=== PATIENT | female | born 1965 | race Caucasian/White ===

== ENCOUNTER 2017-08-09 08:45 | Inpatient (IN) | payer SELFPAY ==
[~2017-08-09] VITALS: Ht 167.6 cm; Wt 133.2 kg
[2017-08-09] VITALS (8 sets, daily range): BP systolic 125–171; BP diastolic 42–92
[~2017-08-09 08:45] MED LIST: ADVAIR DISK1 IN; ALL DAY10 MG PO; ALLEGRA-D24 HOUR OR; AMOXICILLIN/CL875 MG PO; ANAPROX DS550 MG OR; ANTIVERT OR; BUSPIRONE10 MG PO; BUSPIRONE5 MG PO; CELEBREX100 MG PO; CELEBREX200 MG PO; CHOLESTEROL MED; CLINDAMYCIN300 M1 PO; CLONAZEPAM0.5 M1 PO; CYMBALTA30 MG PO; CYMBALTA60 MG PO; ENALAPRIL2.5 MG PO; ENALAPRIL5 MG PO; FLEXERIL OR; FOLIC ACID1 MG PO; GABAPENTIN100 MG PO; GABAPENTIN300 MG PO; GABAPENTIN600 MG PO; GENTAMICIN15 ML/BTL OP; GLYBURIDE5 M1 PO; HYDROCO/APAP1 T10 PO; LISINOPRIL10 MG OR; LYRICA150 MG PO; METFORMIN500 MG PO; METHOTREXATE2.5 MG PO; MIRACLEMM PO; MONTELUKAST SOD10 MG PO; NAPROSYN250 MG PO; NAPROSYN500 MG PO; NORCO1 TA1 PO; PROVENTIL INH17 GM IN; RHEUMATREX2.5 MG PO; TYLENOL500 MG OR; ULTRAM50 MG OR; VALIUM5 MG PO; ZOLPIDEM10 M1 PO; [UNRECOGNIZED DRUG - REMARK]
--- NOTE | 2017-08-09 08:55 | NUR ---
PT TO ROOM 10 VIA EMS STRETCHER. 4 MG OF ZOFRAN GIVEN IVP PER EMS.
[2017-08-09] MEDS ORDERED: CLONAZEPAM1 MG PO (09:02)
[2017-08-09] MEDS ORDERED: ENALAPRIL2.5 MG PO (09:02)
[2017-08-09] MEDS ORDERED: HUMIRA PE1 IM (09:06)
--- NOTE | 2017-08-09 09:50 | NUR ---
NO NEW COMPLAINTS VOICED, AWAITING CALL TO CT
[2017-08-09 10:09] LABS: HEMATOCRIT 32.4 % (37.0-47.0); HEMOGLOBIN 10.4 g/dl (12.0-16.0); MEAN CELL VOLUME 92.3 fL CALC (80.0-100.0); MEAN CORPUSCULAR HGB 29.6 pG CALC (26.0-32.0); MEAN CORPUSCULAR HGB CONC 32.1 g/L CALC (32.0-36.0); NEUT# 6.33 thou/uL (2.00-7.15); RED BLOOD COUNT 3.51 mill/uL (4.20-5.60); RED CELL DISTRI WIDTH 13.5 % (11.5-15.5)
[2017-08-09 10:39] LABS: URINE BILIRUBIN - DIPSTICK NEGATIVE (NEGATIVE); URINE BLOOD DIPSTICK LARGE (NEGATIVE); URINE CLARITY CLOUDY; URINE COLOR YELLOW; URINE GLUCOSE - DIPSTICK 250 mg/dL (NEGATIVE); URINE KETONE NEGATIVE (NEGATIVE); URINE LEUK ESTERASE MODERATE (NEGATIVE); URINE NITRITE - DIPSTICK NEGATIVE (Negative); URINE PH 5.5 (4.5-8.0); URINE PROTEIN - DIPSTICK 30 mg/dL (NEG-TRACE); URINE UROBILINOGEN - DIPSTICK 0.2 E.U./dL (0.2)
[2017-08-09 10:41] LABS: URINE RBC >100 RBC/hpf (0-5)
[2017-08-09 10:42] LABS: URINE BACTERIA FEW hpf
[2017-08-09 10:43] LABS: ALBUMIN 4.1 g/dL (3.2-5.0); BILIRUBIN, TOTAL 0.8 mg/dL (0.0-1.4); CREATININE 1.8 mg/dL (0.5-1.0); TOTAL PROTEIN 7.1 g/dL (6.3-8.2)
[2017-08-09 10:44] LABS: POTASSIUM 5.6 mmol/l (3.5-5.1)
--- NOTE | 2017-08-09 10:50 | NUR ---
PT PAIN IMPROVED, AT BEDSIDE. PT RESTING QUIETLY
--- NOTE | 2017-08-09 11:50 | NUR ---
PAIN IMPROVED WITH RECENT MEDICATION, WILL RECHECK INDICATED
--- NOTE | 2017-08-09 12:45 | NUR ---
ADMISSION IN PROGRESS, PT CALM AND QUIET, PO FLUIDS PROVIDED AFTER OK BY ER
--- NOTE | 2017-08-09 12:50 | NUR ---
ATTEMPTED REPORT TO FLOOR, WILL AWAIT CALLBACK INSTRUCTED
--- NOTE | 2017-08-09 13:10 | NUR ---
SBAR PRINTED TO [id number] AT THIS TIME.
--- NOTE | 2017-08-09 13:42 | NUR ---
Admission Note Report Given to: QASIM BANUELOS Transported by: X Wheelchair Stretcher Transported with: X Nurse Transporter Patent IV [id number] Rn New Graduate
--- NOTE | 2017-08-09 13:42 | NUR ---
REPORT GIVEN TO QASIM BANUELOS
--- NOTE | 2017-08-09 15:00 | NUR ---
REPORT RECEIVED FROM SHAWN IN ED, PT ARRIVED ON UNIT @ 1450 VIA STRETCHER, TRANSFERRED TO BED, ALERT AND ORIENTED X 4, ORIETNED TO ROOM AND CALL ARORA. C/O SHARP PAIN TO LEFT FLANK @ 9/10 AND ALSO NAUSEA. NO ANTIEMETIC ORDERED, FORMING MACHINE UPKEEP MECHANIC HELPER CONTACTED AND WROTE ORDER, ALL CONCERNS ADDRESSED, WILL CONTINUE TO MONITOR.
--- NOTE | 2017-08-09 19:30 | NUR ---
REPORT RECEIVED FROM VIN TRIPP;PT APPEARS TO BE SLEEPING IN SEMI FOWLERS POSITION;NO S/S OF DISTRESS NOTED;RESPIRATIONS APPEAR EVEN AND UNLABORED ON RA;IV FLUIDS INFUSING WELL TO EMS #20 IN THE LAC,SITE APPEARS HEALTHY;PT IS NOTED TO BE UNDER NPO DIET STATUS;WILL CONTINUE TO MONITOR
--- NOTE | 2017-08-09 20:00 | NUR ---
RECIEVED CALL FOR LUCIEN,CAR MECHANIC;PT WILL BE GOING TO OR IN LESS THAN 1 HOUR;PT TO BE PREPARED FOR OR AT THIS TIME;WILL CONTINUE TO MONITOR
--- NOTE | 2017-08-09 20:30 | NUR ---
PT AMBULATED TO RESTROOM WITH STEADY GAIT AND VOIDED 100CC OF CLEAR/YELLOW URINE;PT VOICES MINIMAL PAIN TO HER LEFT FLANK AREA;ELIAS GARCIA AT BEDSIDE TO DISCUSS PROCEDURE AND TRANSPORT TO OR AT THIS TIME
--- NOTE | 2017-08-09 22:55 | NUR ---
PT ARRIVED BACK TO FLOOR VIA STRETCHER IN STABLE CONDITION ACCOMPANIED BY OR STAFF;PT ALERT AND ORIENTED,SLIGHTLY DROWSY;AMBULATED TO BEDSIDE WITH STEADY GAIT;VS OBTAINED;PT DENIES ANY PAIN AT THIS TIME AND IS EDUCATED ON PAIN SCALE AND REPORTING;ASSESSMENT COMPLETED;RESPIRATIONS EVEN AND UNLABORED ON RA,CLEAR LUNG SOUNDS;I.S. AT BEDSIDE AND PT EDUCATED ON USE,10X PER HOUR WHILE AWAKE;ABDOMEN DISTENDED,SOFT ON PALPATION;HYPOACTIVE BOWEL SOUNDS;GENERALIZED DRYNESS NOTED TO BLE;STRONG PEDAL PULSES;EMS #20G TO RAC INFUSING NS @ 100ML/HR,SITE APPEARS HEALTHY AND FREE FROM EDEMA;SKIN INTACT;VICKY BASSAM PROVIDED PER PT REQUEST;SAFETY PRECAUTIONS REINFORCED WITH CALL LIGHT IN REACH;WILL CONTINUE TO MONITOR
[2017-08-10] VITALS (8 sets, daily range): BP systolic 123–156; BP diastolic 49–62
--- NOTE | 2017-08-10 | NUR ---
PT AMBULATED WITH A STEADY GAIT TO RESTROOM AND VOIDED 300CC OF YELLOW/BLOODY TINGED URINE;PT DENIES ANY PAIN;RESPIRATIONS REMAIN EVEN AND UNLABORED;IV SITE PATENT;PT ENCOURAGED TO CALL FOR ASSISTANCE IF NEEDED;CALL LIGHT IN REACH;WILL CONTINUE TO MONITOR
--- NOTE | 2017-08-10 03:20 | NUR ---
PT USED CALL LIGHT TO CALL FOR ASSISTANCE TO THE RESTROOM;PT AMBULATED WITH A STEADY GAIT,SHE IS NOTICEABLY DROWSY THIS MORNING;RESPIRATIONS EVEN AND UNLABORED ON RA;SCD'S IN PLACE;PT RE-POSITIONED BACK INTO BED WITH EASE;DENIES ANY PAIN CURRENTLY AND IS RE-ENCOURAGED TO REPORT PAIN;IV FLUIDS INFUSING WELL TO RAC,SITE APPEARS HEALTHY;CALL LIGHT IN REACH;WILL CONTINUE TO MONITOR
--- NOTE | 2017-08-10 07:40 | NUR ---
ASSESSMENT IS COMPLETED: IV SITE IS FREE FROM REDNESS OR EDEMA. IN TO VISIT WITH PT NEW ORDERS OBTAINED. BREATH SOUNDS ARE CLEAR BILATERALLY. PT IS RELAXING IN BED , HR IS REG, PULSES ARE STRONG X4. CONTINUE TO OSBERVE AND MONITOR.
[2017-08-10 07:44] LABS: HEMOGLOBIN 9.2 g/dl (12.0-16.0); IMMATURE GRANULOCYTES 0.7 % (0.0-1.0); MEAN CELL VOLUME 95.1 fL CALC (80.0-100.0); MEAN CORPUSCULAR HGB 30.2 pG CALC (26.0-32.0); MEAN CORPUSCULAR HGB CONC 31.7 g/L CALC (32.0-36.0); NEUT# 5.46 thou/uL (2.00-7.15); RED BLOOD COUNT 3.05 mill/uL (4.20-5.60)
[2017-08-10 08:11] LABS: CREATININE 1.9 mg/dL (0.5-1.0); POTASSIUM 5.1 mmol/l (3.5-5.1)
[2017-08-10 08:57] LABS: CHOLESTEROL HDL RATIO 3.1 (<4.4 (CALC)); MAGNESIUM 1.5 mg/dL (1.6-2.3)
--- NOTE | 2017-08-10 12:30 | NUR ---
PT IS RELAXING IN BED WITH NO DISTRESS NOTED. IV SITE IS FREE FROM REDNESS OR EDEMA.
--- NOTE | 2017-08-10 16:15 | NUR ---
PT HASBEEN RELAXING IN BED WITH NO DISTRESS NTOED. IV SITE IS FREE FROM REDNESS OR EDEMA.
--- NOTE | 2017-08-10 19:05 | NUR ---
REPORT RECEIVED FROM SHAHIDA LOPEZ;PT APPEARS TO BE SLEEPING IN SUPINE POSITION;IV SITE PATENT INFUSING 1/2 NS @ 100;BED IN THE LOWEST POSITION WITH CALL LIGHT IN REACH;WILL CONTINUE TO MONITOR
--- NOTE | 2017-08-10 21:35 | NUR ---
PT RESTING IN SUPINE POSITION COMPLAINING OF LEFT LOWER QUAD PAIN RATING 9/10 ON THE PAIN SCALE AND REQUESTING PAIN MEDICATION;PT MEDICATED WITH PRN DILAUDID 2MG IVP,WILL MONITOR FOR EFFECTIVENESS;A&O X3;ASSESSMENT COMPLETED;RESPIRATIONS EVEN AND UNLABORED ON RA,CLEAR LUNG SOUNDS;ABDOMEN DISTENDED,SOFT ON PALPATION,HYPOACTIVE BOWEL SOUNDS;TENDERNESS TO UPPER AND LOWER LEFT QUADS;STRONG PEDAL PULSES;EMS #20G TO RAC INFUSING 1/2 NS @ 100ML/HR,SITE APPEARS HEALTHY AND FREE FROM EDEMA;PT EDUCATED ON EMS SITE EXPIRATION DATE AND AGREES FOR A SITE CHANGE IN THE MORNING;PT TEARY,REPORTING THAT SHE IS HAVING A DIFFICULT TIME RIGHT NOW.HER MOTHER 2 YEARS AGO FROM THE SAME SYMPTOMS AND PROCEDURE;PT REASSURED AND ENCOURAGED TO EXPRESS HER THOUGHTS AND FEELINGS;PT VOICES NO OTHER NEEDS AT THIS TIME;SAFETY PRECAUTIONS REINFORCED;CALL LIGHT IN REACH;WILL CONTINUE TO MONITOR
[2017-08-11 00:38] VITALS: BP 96/61
--- NOTE | 2017-08-11 01:05 | NUR ---
PT APPEARS TO BE SLEEPING IN SUPINE POSITION;RESPIRATIONS EVEN AND UNLABORED ON RA;NO S/S OF DISTRESS NOTED;IV FLUIDS INFUSING WELL TO RAC;CALL LIGHT IN REACH;WILL CONTINUE TO MONITOR
--- NOTE | 2017-08-11 04:30 | NUR ---
PT APPEARS TO BE SLEEPING IN SUPINE POSITION;NO S/S OF DISTRESS NOTED;RESPIRATIONS EVEN AND UNLABORED ON RA;IV SITE PATENT INFUSING 1/2 NS WELL;BED IN THE LOWEST POSITION WITH CALL LIGHT IN REACH;WILL CONTINUE TO MONITOR
--- NOTE | 2017-08-11 05:45 | NUR ---
PT AMBULATED 2 HALLWAYS WITH A STEADY GAIT;EMS #20G TO RAC REMOVED WITH CATHETER INTACT DUE TO EXPIRATION DATE;NEW #22G TO LAC STARTED,PT TOLERATED WELL;WILL CONTINUE TO MONITOR
[2017-08-11 06:07] LABS: HEMATOCRIT 28.7 % (37.0-47.0); MEAN CELL VOLUME 96.6 fL CALC (80.0-100.0); MEAN CORPUSCULAR HGB 30.3 pG CALC (26.0-32.0); MEAN CORPUSCULAR HGB CONC 31.4 g/L CALC (32.0-36.0); RED BLOOD COUNT 2.97 mill/uL (4.20-5.60); RED CELL DISTRI WIDTH 14.2 % (11.5-15.5)
--- NOTE | 2017-08-11 06:10 | NUR ---
PT COMPLAINS OF LEFT LOWER QUAD PAIN RATING 9/10 ON THE PAIN SCALE AND REQUEST PAIN MEDICATION;PT MEDICATED WITH DILAUDID 2MG IVP;VICKY BASSAM PROVIDED PER REQUEST;WILL MONITOR FOR EFFECTIVENESS
[2017-08-11 06:31] LABS: ALBUMIN 3.5 g/dL (3.2-5.0); CREATININE 1.5 mg/dL (0.5-1.0); MAGNESIUM 1.8 mg/dL (1.6-2.3)
[2017-08-11 06:33] LABS: POTASSIUM 5.5 mmol/l (3.5-5.1)
[2017-08-11 06:39] VITALS: BP 148/77
[2017-08-11 07:40] VITALS: BP 136/57
--- NOTE | 2017-08-11 07:40 | NUR ---
ASSESSMENT IS COMPLETED: IV SITE IS FREE FROM REDNESS OR EDEMA. PT WANTING TO SLEEP THIS AM. HR IS REG,PULSES ARE STRONG X4,ABD IS SOFT WITH ACTIV EBS,. CONTINUE TO OSBERVE AND MONITOR.
--- NOTE | 2017-08-11 11:42 | NUR ---
PT'S IV SITE IS PINK AND PUFFY. STOPPED FOR NOW WILL RESTART. CONTINUE TO OBSERVE AND MONITOR.
--- NOTE | 2017-08-11 12:30 | NUR ---
ATTEMPTED TO START IV IN RARM, UNSUCCESSFUL X2, HAD LINDY BANUELOS COME AND STARTED IN OUTER RAC WITH #22. FLUSHING AND WORKING WELL PT TOLERATD WELL.
--- NOTE | 2017-08-11 15:50 | NUR ---
PT IS VISITING WITH FAMILY,. NO DISTRESS NOTED. IV SITE IS FREE FROM REDNESS OR EDEAM.
[2017-08-11 15:59] VITALS: BP 154/70
--- NOTE | 2017-08-11 19:30 | NUR ---
REPORT RECIEVED; PT WOKE TO SPEECH. PT DENIES ANY PAIN OR DISCOMFORT. SAFETY PRECAUTIONS REINFORCED. FREQUENT ROUNDS MADE. PT ENCOURAGED TO CALL FOR ASSISTANCE. CALL LIGHT WITHIN REACH.
[2017-08-11 19:50] VITALS: BP 146/62
--- NOTE | 2017-08-11 21:20 | NUR ---
PT WOKE FOR ASSESSMENT; RESP EVEN AND UNLABORED. LUNGS CLEAR BILAT. ABD DISTENDED; SOFT. HYPOACTIVE BOWEL SOUNDS NOTED. TRACE ANKLE EDEMA NOTED BILAT. PEDAL PULSES PALPATED BILAT. IV RFA PATENT; FLUSHED WITHOUT DIFFICULT. PT ENCOURAGED TO CALL FOR ASSISTANCE. SAFETY PRECAUTIONS REINFORCED. CALL LIGHT WITHIN REACH.
--- NOTE | 2017-08-12 00:10 | NUR ---
RESP EVEN AND UNLABORED; NO DISTRESS NOTED. CALL LIGHT WITHIN REACH.
--- NOTE | 2017-08-12 02:40 | NUR ---
PT UP TO BATHROOM; PT DENIES ANY PAIN OR DISCOMFORT. PT ASSISTED BACK TO BED. SAFETY PRECAUTIONS REINFORCED. PT ENCOURAGED TO CALL FOR ASSISTANCE. CALL LIGHT WITHIN REACH.
--- NOTE | 2017-08-12 04:05 | NUR ---
RESP EVEN AND UNLABORED; NO DISTRESS NOTED. ASSESSMENT UNCHANGED. CALL LIGHT WITHIN REACH.
[2017-08-12 04:57] VITALS: BP 145/71
[2017-08-12 05:43] LABS: ALBUMIN 3.6 g/dL (3.2-5.0); CREATININE 1.3 mg/dL (0.5-1.0); POTASSIUM 4.6 mmol/l (3.5-5.1)
[2017-08-12 05:49] LABS: HEMATOCRIT 28.8 % (37.0-47.0); HEMOGLOBIN 9.1 g/dl (12.0-16.0); IMMATURE GRANULOCYTES 1.9 % (0.0-1.0); MEAN CORPUSCULAR HGB CONC 31.6 g/L CALC (32.0-36.0); NEUT# 3.62 thou/uL (2.00-7.15); RED BLOOD COUNT 3.03 mill/uL (4.20-5.60); RED CELL DISTRI WIDTH 13.9 % (11.5-15.5)
--- NOTE | 2017-08-12 07:00 | NUR ---
BEDSIDE REPORT RECEIVED BY KAVEH. PT IS RESTING IN HER RIGHT SIDE AND DENIES NEEDS. CALL LIGHT IN REACH.
[2017-08-12 08:00] VITALS: BP 124/64
--- NOTE | 2017-08-12 08:00 | NUR ---
ASSESSMENT DONE AND 02 AT 2L/MIN VIA NC. # 22 RFA THAT APPEARS HEALTHY. ANKLES BILATERAL EDEMA TRACE. OREINTED T0 CALL LIGHT AND SAFETY PRECAUTIONS REINFORCED.
--- NOTE | 2017-08-12 10:04 | NUR ---
MEIDCATED PT FOR PAIN SEE EMAR.
--- NOTE | 2017-08-12 12:00 | NUR ---
PT SITTING IN BED EATING HER LUNCH WITH NO S/S OF DISTRESS NOTED. CALL LIGHT IN REACH.
--- NOTE | 2017-08-12 15:20 | NUR ---
PT IS SITTING IN BED WITH NO S/S OF DISTRESS NOTED. IN ROOM.
--- NOTE | 2017-08-12 15:53 | NUR ---
Discharge instructions given. Educated PT on how to give insulin medication and where the site for the injections. Patient verbalizes understanding of same. Discharged in stable condition via Wheelchair to Home with spouse. All belongings sent with pt.
== END 2017-08-12 15:45 | disposition home or self-care (01) | DRG 690 ==
LOC: ED 08:45 → ED-I 12:15 → MS2 13:03 → ED 13:03 → MS2 08-12 15:45
PROVIDERS: Emergency Medicine; Internal Medicine Nephrology; Nurse Practitioner Family; ADMIT Internal Medicine; ATTEND Internal Medicine
PROC: 0T788DZ Dilation of Bilateral Ureters with Intraluminal Device, Via Natural or Artificial Opening Endoscopic (ICD-10-PCS; principal; 2017-08-09)
PROC: BT14ZZZ Fluoroscopy of Kidneys, Ureters and Bladder (ICD-10-PCS; 2017-08-09)
DX: N13.6 Pyonephrosis (principal); E11.22 Type 2 diabetes mellitus with diabetic chronic kidney disease; M32.9 Systemic lupus erythematosus, unspecified; N17.9 Acute kidney failure, unspecified; E83.42 Hypomagnesemia; N18.3 Chronic kidney disease, stage 3 (moderate); E11.65 Type 2 diabetes mellitus with hyperglycemia; Z68.42 Body mass index [BMI] 45.0-49.9, adult; E87.5 Hyperkalemia; J44.9 Chronic obstructive pulmonary disease, unspecified; G47.33 Obstructive sleep apnea (adult) (pediatric); I12.9 Hypertensive chronic kidney disease with stage 1 through stage 4 chronic kidney disease, or unspecified chronic kidney disease; F41.9 Anxiety disorder, unspecified; E66.9 Obesity, unspecified; D64.9 Anemia, unspecified; Z87.891 Personal history of nicotine dependence; Z79.84 Long term (current) use of oral hypoglycemic drugs; Z98.890 Other specified postprocedural states
CPT/HCPCS: Q9967

== ENCOUNTER 2017-10-06 08:33 | Day surgery (SDC) | payer SELFPAY ==
[~2017-10-06] VITALS: Ht 167.6 cm; Wt 122.5 kg
[~2017-10-06 08:33] MED LIST changes: +CLONAZEPAM1 MG PO; +HUMIRA PE1 IM; +HYDROCO/APAP1 TA9 PO; +NOVOLOG100 UNIT/M SC; +TAMSULOSIN HCL0.4 MG PO
[2017-10-06] MEDS ORDERED: KEFLEX250 MG PO (12:57)
[2017-10-06] MEDS ORDERED: DITROPAN5 MG/TA1 PO (12:57)
[2017-10-06] MEDS ORDERED: DOCUSATE CAL240 MG PO (12:57)
[2017-10-06 13:34] VITALS: BP 176/88
== END 2017-10-06 14:10 | disposition home or self-care (01) | DRG 661 ==
LOC: ORM 08:33
PROVIDERS: ATTEND Urology
PROC: 0TC18ZZ Extirpation of Matter from Left Kidney, Via Natural or Artificial Opening Endoscopic (ICD-10-PCS; principal; 2017-10-06)
PROC: 0TC68ZZ Extirpation of Matter from Right Ureter, Via Natural or Artificial Opening Endoscopic (ICD-10-PCS; 2017-10-06)
PROC: 0TC78ZZ Extirpation of Matter from Left Ureter, Via Natural or Artificial Opening Endoscopic (ICD-10-PCS; 2017-10-06)
PROC: 0TC08ZZ Extirpation of Matter from Right Kidney, Via Natural or Artificial Opening Endoscopic (ICD-10-PCS; 2017-10-06)
PROC: 0T788DZ Dilation of Bilateral Ureters with Intraluminal Device, Via Natural or Artificial Opening Endoscopic (ICD-10-PCS; 2017-10-06)
DX: N20.1 Calculus of ureter (principal); N18.9 Chronic kidney disease, unspecified; N26.1 Atrophy of kidney (terminal)
CPT/HCPCS: J2710; Q9967

== ENCOUNTER 2018-11-22 08:59 | Emergency (ER) | payer SELFPAY ==
[~2018-11-22] VITALS: Ht 167.6 cm; Wt 118.8 kg
[~2018-11-22 08:59] MED LIST changes: +DITROPAN5 MG/TA1 PO; +DOCUSATE CAL240 MG PO; +KEFLEX250 MG PO
[2018-11-22] MEDS ORDERED: FLEXERIL PO (09:39)
[2018-11-22] MEDS ORDERED: MOTRIN400 MG PO (09:40)
[2018-11-22] MEDS ORDERED: METHYLPRED4 MG PO (09:41)
[2018-11-22 10:01] LABS: HEMATOCRIT 33.1 % (37.0-47.0); IMMATURE GRANULOCYTES 0.7 % (0.0-5.0); MEAN CORPUSCULAR HGB 28.8 pG CALC (26.0-32.0); MEAN CORPUSCULAR HGB CONC 33.5 g/L CALC (32.0-36.0); NEUT# 5.73 thou/uL (2.00-7.15); RED BLOOD COUNT 3.86 mill/uL (4.20-5.60); RED CELL DISTRI WIDTH 14.5 % (11.5-15.5)
[2018-11-22 10:15] LABS: BUN 15 mg/dL (7-17); BUN/CREATININE RATIO 14 (12-20 (CALC)); CARBON DIOXIDE 19 mmol/l (22-30); CHLORIDE 103 mmol/l (95-108); CREATININE 1.1 mg/dL (0.5-1.0); GFR 52 ML/MIN (>=60 (CALC)); GFR FOR AFR.AMER. > 60 ML/MIN (>=60 (CALC)); POTASSIUM 3.4 mmol/l (3.5-5.1)
[2018-11-22 10:16] LABS: ANION GAP 18 (6-22 (CALC)); SODIUM 137 mmol/l (137-146)
[2018-11-22] MEDS ORDERED: K-TAB20 MEQ PO (10:20)
[2018-11-22 10:21] LABS: HEMOGLOBIN 11.1 g/dl (12.0-16.0); MEAN CELL VOLUME 85.8 fL CALC (80.0-100.0)
[2018-11-22] MEDS ORDERED: CYCLOBENZAPR5 MG PO (11:03)
[2018-11-22 11:46] VITALS: BP 150/64
== END 2018-11-22 11:37 | disposition home or self-care (01) | DRG 563 ==
LOC: ED 08:59
PROVIDERS: Family Medicine
DX: S39.012A Strain of muscle, fascia and tendon of lower back, initial encounter (principal); R22.43 Localized swelling, mass and lump, lower limb, bilateral; M54.5 Low back pain; R94.31 Abnormal electrocardiogram [ECG] [EKG]

== ENCOUNTER 2019-10-07 | Emergency (ER) | payer SELFPAY ==
[~2019-10-07] MED LIST changes: +CYCLOBENZAPR5 MG PO; +FLEXERIL PO; +K-TAB20 MEQ PO; +METHYLPRED4 MG PO; +MOTRIN400 MG PO
[2019-10-07 09:46] LABS: HEMATOCRIT 33.8 % (37.0-47.0); IMMATURE GRANULOCYTES 0.3 % (0.0-5.0); MEAN CELL VOLUME 87.1 fL CALC (80.0-100.0); MEAN CORPUSCULAR HGB 28.4 pG CALC (26.0-32.0); MEAN CORPUSCULAR HGB CONC 32.5 g/dL CAL (32.0-36.0); NEUT# 4.6 thou/uL (2.00-7.15); RED BLOOD COUNT 3.88 mill/uL (4.20-5.60); RED CELL DISTRI WIDTH 15.1 % (11.5-15.5)
[2019-10-07 10:09] LABS: ALBUMIN 4.1 g/dL (3.2-5.0); ALKALINE PHOSPHATASE 100 u/l (38-126); BILIRUBIN, TOTAL 0.9 mg/dL (0.0-1.4); BUN 18 mg/dL (7-17); BUN/CREATININE RATIO 16 (12-20 (CALC)); CHLORIDE 104 mmol/l (95-108); CREATININE 1.1 mg/dL (0.5-1.0); GFR 51 ML/MIN (>=60 (CALC)); GFR FOR AFR.AMER. > 60 ML/MIN (>=60 (CALC)); LIPASE 122 u/l (23-300); SGOT/AST 21 u/l (14-36); SODIUM 139 mmol/l (137-146); TOTAL PROTEIN 7.4 g/dL (6.3-8.2)
[2019-10-07] MEDS ORDERED: HUMIRA10 MG/0.1 IJ (10:20)
[2019-10-07 10:21] LABS: ANION GAP 11 (6-22 (CALC)); CARBON DIOXIDE 28 mmol/l (22-30); POTASSIUM 4.4 mmol/l (3.5-5.1)
[2019-10-07] MEDS ORDERED: LEVEMIR100 UNIT/M SC (10:21)
[2019-10-07] MEDS ORDERED: SUGAR BLOCKER PO (10:22)
[2019-10-07 10:55] LABS: URINE BILIRUBIN - DIPSTICK NEGATIVE (NEGATIVE); URINE BLOOD DIPSTICK NEGATIVE (NEGATIVE); URINE COLOR YELLOW; URINE GLUCOSE - DIPSTICK NEGATIVE (NEGATIVE); URINE KETONE NEGATIVE (NEGATIVE); URINE LEUK ESTERASE TRACE (NEGATIVE); URINE NITRITE - DIPSTICK NEGATIVE (Negative); URINE PROTEIN - DIPSTICK NEGATIVE (NEG-TRACE); URINE UROBILINOGEN - DIPSTICK 0.2 E.U./dL (0.2)
[2019-10-07] MEDS ORDERED: HYOSCYAMINE0.125 M3 PO (13:51)
[2019-10-07] MEDS ORDERED: ONDANSETRON4 MG PO (13:52)
[2019-10-07] MEDS ORDERED: BACTRIM DS1 TAB PO (13:52)
== END 2019-10-07 13:45 | disposition home or self-care (01) | DRG 392 ==
PROVIDERS: Family Medicine
DX: R10.13 Epigastric pain (principal); R10.30 Lower abdominal pain, unspecified; R30.0 Dysuria; K80.20 Calculus of gallbladder without cholecystitis without obstruction; I10 Essential (primary) hypertension
CPT/HCPCS: Q9967

== ENCOUNTER 2020-08-04 07:58 | Inpatient (IN) | payer SELFPAY ==
[~2020-08-04] VITALS: Ht 167.6 cm; Wt 113.4 kg
[~2020-08-04 07:58] MED LIST changes: +BACTRIM DS1 TAB PO; +HUMIRA10 MG/0.1 IJ; +HYOSCYAMINE0.125 M3 PO; +LEVEMIR100 UNIT/M SC; +ONDANSETRON4 MG PO; +SUGAR BLOCKER PO
[2020-08-04 09:21] LABS: HEMATOCRIT 33.6 % (37.0-47.0); HEMOGLOBIN 10.8 g/dl (12.0-16.0); IMMATURE GRANULOCYTES 0.4 % (0.0-5.0); MEAN CELL VOLUME 87.3 fL CALC (80.0-100.0); MEAN CORPUSCULAR HGB 28.1 pG CALC (26.0-32.0); MEAN CORPUSCULAR HGB CONC 32.1 g/dL CAL (32.0-36.0); NEUT# 4.42 thou/uL (2.00-7.15); RED BLOOD COUNT 3.85 mill/uL (4.20-5.60); RED CELL DISTRI WIDTH 14.7 % (11.5-15.5)
[2020-08-04 09:38] LABS: ALBUMIN 4.3 g/dL (3.2-5.0); ALKALINE PHOSPHATASE 109 u/l (38-126); ANION GAP 13 (6-22 (CALC)); BILIRUBIN, TOTAL 0.7 mg/dL (0.0-1.4); BUN 19 mg/dL (7-17); BUN/CREATININE RATIO 19 (12-20 (CALC)); CARBON DIOXIDE 25 mmol/l (22-30); CHLORIDE 104 mmol/l (95-108); GFR 57 ML/MIN (>=60 (CALC)); GFR FOR AFR.AMER. > 60 ML/MIN (>=60 (CALC)); LIPASE 98 u/l (23-300); SGOT/AST 25 u/l (14-36); SODIUM 138 mmol/l (137-146); TOTAL PROTEIN 7.8 g/dL (6.3-8.2)
[2020-08-04 09:50] LABS: MYOGLOBIN 78 ng/mL (0 - 62)
[2020-08-04 11:56] LABS: URINE BILIRUBIN - DIPSTICK NEGATIVE (NEGATIVE); URINE BLOOD DIPSTICK TRACE-LYSED (NEGATIVE); URINE COLOR YELLOW; URINE GLUCOSE - DIPSTICK NEGATIVE (NEGATIVE); URINE KETONE NEGATIVE (NEGATIVE); URINE LEUK ESTERASE NEGATIVE (NEGATIVE); URINE NITRITE - DIPSTICK NEGATIVE (Negative); URINE PROTEIN - DIPSTICK TRACE mg/dL (NEG-TRACE); URINE UROBILINOGEN - DIPSTICK 0.2 E.U./dL (0.2)
[2020-08-04 18:08] VITALS: BP 191/77
[2020-08-04 19:00] VITALS: BP 159/89
[2020-08-05] VITALS (24 sets, daily range): BP systolic 119–191; BP diastolic 52–101
[2020-08-05 06:14] LABS: HEMOGLOBIN 11.5 g/dl (12.0-16.0); IMMATURE GRANULOCYTES 0.7 % (0.0-5.0); MEAN CELL VOLUME 86.7 fL CALC (80.0-100.0); MEAN CORPUSCULAR HGB 27.7 pG CALC (26.0-32.0); MEAN CORPUSCULAR HGB CONC 31.9 g/dL CAL (32.0-36.0); NEUT# 7.11 thou/uL (2.00-7.15); RED BLOOD COUNT 4.15 mill/uL (4.20-5.60); RED CELL DISTRI WIDTH 14.6 % (11.5-15.5)
[2020-08-05 06:34] LABS: ALBUMIN 4.3 g/dL (3.2-5.0); ALKALINE PHOSPHATASE 120 u/l (38-126); ANION GAP 16 (6-22 (CALC)); BILIRUBIN, TOTAL 0.9 mg/dL (0.0-1.4); BUN 21 mg/dL (7-17); BUN/CREATININE RATIO 21 (12-20 (CALC)); CARBON DIOXIDE 20 mmol/l (22-30); CHLORIDE 104 mmol/l (95-108); GFR 57 ML/MIN (>=60 (CALC)); GFR FOR AFR.AMER. > 60 ML/MIN (>=60 (CALC)); HDL CHOLESTEROL 71 mg/dL (>=40); MAGNESIUM 1.8 mg/dL (1.6-2.3); POTASSIUM 4.7 mmol/l (3.5-5.1); SGOT/AST 26 u/l (14-36); SODIUM 135 mmol/l (137-146); TOTAL PROTEIN 7.7 g/dL (6.3-8.2); VLDL CHOLESTROL 92 mg/dl (2-49 (CALC))
[2020-08-05 06:56] LABS: TOTAL CHOLESTEROL 284 mg/dl (0-199)
[2020-08-05] MEDS ORDERED: HUMIR1 SC (08:35)
[2020-08-05] MEDS ORDERED: LEVEMIR100 UNIT/M SC (08:36)
[2020-08-05 11:43] LABS: MAGNESIUM 1.8 mg/dL (1.6-2.3)
[2020-08-06] VITALS (7 sets, daily range): BP systolic 119–145; BP diastolic 52–73
[2020-08-06 05:18] LABS: HEMATOCRIT 33.6 % (37.0-47.0); HEMOGLOBIN 10.9 g/dl (12.0-16.0); MEAN CELL VOLUME 86.6 fL CALC (80.0-100.0); MEAN CORPUSCULAR HGB 28.1 pG CALC (26.0-32.0); MEAN CORPUSCULAR HGB CONC 32.4 g/dL CAL (32.0-36.0); RED BLOOD COUNT 3.88 mill/uL (4.20-5.60); RED CELL DISTRI WIDTH 14.5 % (11.5-15.5)
[2020-08-06 05:54] LABS: CREATININE 1.2 mg/dL (0.5-1.0); MAGNESIUM 2.3 mg/dL (1.6-2.3); POTASSIUM 4.1 mmol/l (3.5-5.1)
[2020-08-06] MEDS ORDERED: FLECAINIDE100 MG PO (10:54)
[2020-08-06] MEDS ORDERED: PREDNISONE10 MG PO (11:01)
[2020-08-06] MEDS ORDERED: LISINOPRIL20 MG PO (11:01)
[2020-08-06] MEDS ORDERED: TRAMADOL HCL50 MG PO (11:01)
[2020-08-06] MEDS ORDERED: CYCLOBENZAPR5 MG PO (11:01)
[2020-08-06] MEDS ORDERED: ASPIRIN CHEWABL81 MG PO (11:01)
== END 2020-08-06 13:30 | disposition home or self-care (01) | DRG 310 ==
LOC: ED 07:58 → ED-I 09:50 → ED 10:07 → ED-I 10:08 → MS2 15:20 → ICU 20:54 → MS2 08-05 11:40 → ICU 08-05 20:54
PROVIDERS: Emergency Medicine; Nurse Practitioner; ADMIT Internal Medicine; ATTEND Internal Medicine
DX: I47.2 Ventricular tachycardia (principal); I11.0 Hypertensive heart disease with heart failure; I50.9 Heart failure, unspecified; E11.9 Type 2 diabetes mellitus without complications; I25.10 Atherosclerotic heart disease of native coronary artery without angina pectoris; M47.816 Spondylosis without myelopathy or radiculopathy, lumbar region; L93.0 Discoid lupus erythematosus; F41.9 Anxiety disorder, unspecified; N28.81 Hypertrophy of kidney; T46.5X6A Underdosing of other antihypertensive drugs, initial encounter; Z91.128 Patient's intentional underdosing of medication regimen for other reason; Z79.4 Long term (current) use of insulin; Z87.891 Personal history of nicotine dependence; Z20.822 Contact with and (suspected) exposure to COVID-19
CPT/HCPCS: J1650; J3475

== ENCOUNTER 2021-06-30 08:42 | Emergency (ER) | payer SELFPAY ==
[~2021-06-30] VITALS: Ht 167.6 cm; Wt 113.2 kg
[~2021-06-30 08:42] MED LIST changes: +ASPIRIN CHEWABL81 MG PO; +FLECAINIDE100 MG PO; +HUMIR1 SC; +LISINOPRIL20 MG PO; +PREDNISONE10 MG PO; +TRAMADOL HCL50 MG PO
[2021-06-30] MEDS ORDERED: NAPROXEN500 MG PO (12:09)
[2021-06-30 12:28] VITALS: BP 142/56
== END 2021-06-30 12:53 | disposition home or self-care (01) | DRG 563 ==
LOC: ED 08:42
DX: S96.912A Strain of unspecified muscle and tendon at ankle and foot level, left foot, initial encounter (principal); S96.911A Strain of unspecified muscle and tendon at ankle and foot level, right foot, initial encounter; I11.0 Hypertensive heart disease with heart failure; I50.9 Heart failure, unspecified; E11.9 Type 2 diabetes mellitus without complications; E66.01 Morbid (severe) obesity due to excess calories; X50.9XXA Other and unspecified overexertion or strenuous movements or postures, initial encounter; Z79.4 Long term (current) use of insulin; Z68.41 Body mass index [BMI] 40.0-44.9, adult

== ENCOUNTER 2022-02-22 09:12 | Emergency (ER) | payer SELFPAY ==
[~2022-02-22] VITALS: Ht 167.6 cm; Wt 113.6 kg
[~2022-02-22 09:12] MED LIST changes: +NAPROXEN500 MG PO
[2022-02-22 09:46] LABS: URINE BILIRUBIN - DIPSTICK NEGATIVE (NEGATIVE); URINE BLOOD DIPSTICK NEGATIVE (NEGATIVE); URINE COLOR YELLOW; URINE GLUCOSE - DIPSTICK NEGATIVE (NEGATIVE); URINE KETONE NEGATIVE (NEGATIVE); URINE PH 5.5 (4.5-8.0); URINE PROTEIN - DIPSTICK NEGATIVE (NEG-TRACE); URINE SPECIFIC GRAVITY 1.025; URINE UROBILINOGEN - DIPSTICK 0.2 E.U./dL (0.2)
[2022-02-22 09:47] LABS: URINE LEUK ESTERASE SMALL (NEGATIVE); URINE NITRITE - DIPSTICK NEGATIVE (Negative)
[2022-02-22 09:50] LABS: HEMATOCRIT 35.8 % (37.0-47.0); HEMOGLOBIN 11.9 g/dl (12.0-16.0); IMMATURE GRANULOCYTES 0.4 % (0.0-5.0); MEAN CELL VOLUME 90.6 fL CALC (80.0-100.0); MEAN CORPUSCULAR HGB 30.1 pG CALC (26.0-32.0); MEAN CORPUSCULAR HGB CONC 33.2 g/dL CAL (32.0-36.0); NEUT# 3.59 thou/uL (2.00-7.15); RED BLOOD COUNT 3.95 mill/uL (4.20-5.60); RED CELL DISTRI WIDTH 14.4 % (11.5-15.5)
[2022-02-22 09:51] LABS: URINE BACTERIA MODERATE hpf; URINE SQUAMOUS EPITHELIAL CELL FEW EPI/hpf (0-FEW)
[2022-02-22 09:59] VITALS: BP 152/81
[2022-02-22 10:56] LABS: ALBUMIN 4.4 g/dL (3.2-5.0); BILIRUBIN, TOTAL 0.7 mg/dL (0.0-1.4); CREATININE 1.3 mg/dL (0.5-1.0); POTASSIUM 4.6 mmol/l (3.5-5.1); TOTAL PROTEIN 8.2 g/dL (6.3-8.2)
[2022-02-22 11:16] VITALS: BP 157/91
[2022-02-22 11:18] VITALS: BP 171/82
[2022-02-22] MEDS ORDERED: OMEPRAZOLE DR40 MG PO (13:02)
[2022-02-22] MEDS ORDERED: CEPHALEXIN500 M1 PO (13:04)
[2022-02-22 13:07] VITALS: BP 171/82
== END 2022-02-22 13:15 | disposition home or self-care (01) | DRG 392 ==
LOC: ED 09:12
PROVIDERS: Family Medicine
DX: R10.13 Epigastric pain (principal); N39.0 Urinary tract infection, site not specified; I10 Essential (primary) hypertension; E66.9 Obesity, unspecified; E11.9 Type 2 diabetes mellitus without complications; Z79.4 Long term (current) use of insulin
CPT/HCPCS: Q9967

== ENCOUNTER 2022-03-20 09:58 | Emergency (ER) | payer SELFPAY ==
[~2022-03-20] VITALS: Ht 167.6 cm; Wt 113.0 kg
[2022-03-20] VITALS (10 sets, daily range): BP systolic 111–158; BP diastolic 35–94
[~2022-03-20 09:58] MED LIST changes: +CEPHALEXIN500 M1 PO; +OMEPRAZOLE DR40 MG PO
[2022-03-20 10:34] LABS: IMMATURE GRANULOCYTES 0.7 % (0.0-5.0); MEAN CELL VOLUME 90.6 fL CALC (80.0-100.0); MEAN CORPUSCULAR HGB 30.2 pG CALC (26.0-32.0); MEAN CORPUSCULAR HGB CONC 33.3 g/dL CAL (32.0-36.0); NEUT# 7.5 thou/uL (2.00-7.15); RED BLOOD COUNT 2.88 mill/uL (4.20-5.60); RED CELL DISTRI WIDTH 14.5 % (11.5-15.5)
[2022-03-20 10:35] LABS: HEMATOCRIT 26.1 % (37.0-47.0); HEMOGLOBIN 8.7 g/dl (12.0-16.0)
[2022-03-20 10:40] LABS: ALBUMIN 3.8 g/dL (3.2-5.0); BILIRUBIN, TOTAL 0.9 mg/dL (0.0-1.4); CHLORIDE 107 mmol/l (95-108); SGOT/AST 27 u/l (14-36); SODIUM 141 mmol/l (137-146); TOTAL PROTEIN 7.6 g/dL (6.3-8.2)
[2022-03-20 10:47] LABS: ALKALINE PHOSPHATASE 188 u/l (38-126); ANION GAP 27 (6-22 (CALC)); BUN 92 mg/dL (7-17); BUN/CREATININE RATIO 6 (12-20 (CALC)); CARBON DIOXIDE 12 mmol/l (22-30); GFR FOR AFR.AMER. 3 ML/MIN (>=60 (CALC)); GFR OTHER RACES 3 ML/MIN (>=60 (CALC)); POTASSIUM 5.3 mmol/l (3.5-5.1)
[2022-03-20 10:48] LABS: CREATININE > 14.0 mg/dL (0.5-1.0)
[2022-03-20 11:45] LABS: URINE BILIRUBIN - DIPSTICK NEGATIVE (NEGATIVE); URINE BLOOD DIPSTICK SMALL (NEGATIVE); URINE COLOR YELLOW; URINE GLUCOSE - DIPSTICK NEGATIVE (NEGATIVE); URINE KETONE NEGATIVE (NEGATIVE); URINE LEUK ESTERASE MODERATE (NEGATIVE); URINE NITRITE - DIPSTICK NEGATIVE (Negative); URINE PROTEIN - DIPSTICK TRACE mg/dL (NEG-TRACE); URINE UROBILINOGEN - DIPSTICK 0.2 E.U./dL (0.2)
[2022-03-20 11:46] LABS: URINE BACTERIA FEW hpf; URINE EPITHELIAL CELLS FEW EPI/hpf (0-FEW)
== END 2022-03-20 17:00 | disposition short-term general hospital (02) | DRG 694 ==
LOC: ED 09:58 → ED-I 12:32 → ED 17:00
PROVIDERS: Family Medicine
DX: N20.0 Calculus of kidney (principal); N39.0 Urinary tract infection, site not specified; R78.81 Bacteremia; N28.9 Disorder of kidney and ureter, unspecified; I11.0 Hypertensive heart disease with heart failure; I50.9 Heart failure, unspecified; E11.9 Type 2 diabetes mellitus without complications; E66.01 Morbid (severe) obesity due to excess calories; Z20.822 Contact with and (suspected) exposure to COVID-19

== ENCOUNTER 2022-11-16 08:39 | Emergency (ER) | payer MEDICAID ==
[~2022-11-16] VITALS: Ht 167.6 cm; Wt 107.0 kg
[2022-11-16] VITALS (13 sets, daily range): BP systolic 134–158; BP diastolic 61–101
[2022-11-16 09:30] LABS: BASO% 0.1 % (0-3); EOS% 3.9 % (0-8); IMMATURE GRANULOCYTES 0.4 % (0.0-5.0); LYMPH% 24.9 % (15-41); MEAN CORPUSCULAR HGB 27.6 pG CALC (26.0-32.0); MEAN CORPUSCULAR HGB CONC 32.6 g/dL CAL (32.0-36.0); MONO% 7.7 % (2-13); NEUT# 4.41 thou/uL (2.00-7.15); RED BLOOD COUNT 4.21 mill/uL (4.20-5.60); RED CELL DISTRI WIDTH 14.9 % (11.5-15.5)
[2022-11-16 09:33] LABS: HEMATOCRIT 35.6 % (37.0-47.0); HEMOGLOBIN 11.6 g/dl (12.0-16.0); MEAN CELL VOLUME 84.6 fL CALC (80.0-100.0)
[2022-11-16 09:43] LABS: ALBUMIN 4.4 g/dL (3.2-5.0); BILIRUBIN, TOTAL 0.8 mg/dL (0.02-1.3); TOTAL PROTEIN 7.8 g/dL (6.3-8.2)
[2022-11-16 09:48] LABS: CREATININE 1.3 mg/dL (0.5-1.0); POTASSIUM 3.5 mmol/l (3.5-5.1)
[2022-11-16 10:31] LABS: URINE BILIRUBIN - DIPSTICK NEGATIVE (NEGATIVE); URINE BLOOD DIPSTICK TRACE-INTACT (NEGATIVE); URINE COLOR YELLOW; URINE GLUCOSE - DIPSTICK 250 mg/dL (NEGATIVE); URINE KETONE NEGATIVE (NEGATIVE); URINE PROTEIN - DIPSTICK 30 mg/dL (NEG-TRACE); URINE SPECIFIC GRAVITY 1.025; URINE UROBILINOGEN - DIPSTICK 0.2 E.U./dL (0.2)
[2022-11-16 10:34] LABS: URINE LEUK ESTERASE SMALL (NEGATIVE); URINE NITRITE - DIPSTICK NEGATIVE (Negative)
[2022-11-16 10:38] LABS: URINE RBC 0-2 RBC/hpf (0-5); URINE SQUAMOUS EPITHELIAL CELL MANY EPI/hpf (0-FEW)
[2022-11-16] MEDS ORDERED: AMLODIPINE BESY10 MG PO (14:43)
[2022-11-16] MEDS ORDERED: AMOX/K CLAV875 M1 PO ×2 (15:24→15:40)
== END 2022-11-16 16:00 | disposition home or self-care (01) ==
LOC: ED 08:39
PROVIDERS: Family Medicine
DX: J32.0 Chronic maxillary sinusitis (principal); E11.9 Type 2 diabetes mellitus without complications; I11.0 Hypertensive heart disease with heart failure; I50.9 Heart failure, unspecified; E66.01 Morbid (severe) obesity due to excess calories; Z79.4 Long term (current) use of insulin

== ENCOUNTER 2023-12-20 09:01 | Emergency (ER) | payer OTHER ==
[~2023-12-20] VITALS: Ht 167.6 cm; Wt 103.0 kg
[2023-12-20] VITALS (9 sets, daily range): BP systolic 145–172; BP diastolic 68–84
[~2023-12-20 09:01] MED LIST changes: +AMLODIPINE BESY10 MG PO; +AMOX/K CLAV875 M1 PO
[2023-12-20 10:13] LABS: BASO% 0.4 % (0-3); EOS% 13.6 % (0-8); HEMATOCRIT 33.6 % (37.0-47.0); HEMOGLOBIN 10.9 g/dl (12.0-16.0); IMMATURE GRANULOCYTES 0.3 % (0.0-5.0); LYMPH% 28.2 % (15-41); MEAN CORPUSCULAR HGB 29.7 pG CALC (26.0-32.0); MEAN CORPUSCULAR HGB CONC 32.4 g/dL CAL (32.0-36.0); MONO% 7.3 % (2-13); NEUT# 4.01 thou/uL (2.00-7.15); NEUT% 50.2 % (42-76); RED BLOOD COUNT 3.67 mill/uL (4.20-5.60)
[2023-12-20 10:15] LABS: MEAN CELL VOLUME 91.6 fL CALC (80.0-100.0)
[2023-12-20 10:27] LABS: BILIRUBIN, TOTAL 0.9 mg/dL (0.02-1.3); CREATININE 1.4 mg/dL (0.5-1.0); POTASSIUM 4.2 mmol/l (3.5-5.1); TOTAL PROTEIN 7.4 g/dL (6.3-8.2)
[2023-12-20] MEDS ORDERED: DEXAMETHASONE SOD. PHOSPHATE 10 MG/ML VIAL IM ONE (12:35)
[2023-12-20] MEDS ORDERED: KETOROLAC TROMETHAMINE 15 MG/ML SDV IM ONE (12:35)
[2023-12-20] MEDS ORDERED: TRAMADOL HYDROC50 M1 PO (13:53)
[2023-12-20] MEDS ORDERED: PREDNISONE20 MG PO (13:53)
== END 2023-12-20 14:22 | disposition home or self-care (01) ==
LOC: ED 09:01
PROVIDERS: Family Medicine
DX: M25.59 Pain in other specified joint (principal); I13.0 Hypertensive heart and chronic kidney disease with heart failure and stage 1 through stage 4 chronic kidney disease, or unspecified chronic kidney disease; I50.9 Heart failure, unspecified; E11.22 Type 2 diabetes mellitus with diabetic chronic kidney disease; N18.9 Chronic kidney disease, unspecified; E66.01 Morbid (severe) obesity due to excess calories; Z79.4 Long term (current) use of insulin; Z20.822 Contact with and (suspected) exposure to COVID-19

== ENCOUNTER 2024-02-07 16:26 | Emergency (ER) | payer OTHER ==
[~2024-02-07] VITALS: Ht 167.6 cm; Wt 108.0 kg
[2024-02-07] VITALS (9 sets, daily range): BP systolic 152–197; BP diastolic 63–103
[~2024-02-07 16:26] MED LIST changes: +PREDNISONE20 MG PO; +TRAMADOL HYDROC50 M1 PO
[2024-02-07] MEDS ORDERED: KETOROLAC TROMETHAMINE 30 MG/ML SDV IV ONE (17:10)
[2024-02-07] MEDS ORDERED: SODIUM CHLORIDE 0.9% 1,000 ML IV ONE (17:10)
[2024-02-07 17:29] LABS: URINE BLOOD DIPSTICK Small (NEGATIVE); URINE GLUCOSE - DIPSTICK 100 mg/dL (NEGATIVE); URINE KETONE 15 mg/dL (NEGATIVE); URINE LEUK ESTERASE Trace (NEGATIVE); URINE PROTEIN - DIPSTICK >=300 mg/dL (NEG-TRACE); URINE SPECIFIC GRAVITY >=1.030
[2024-02-07 17:31] LABS: URINE COLOR Amber; URINE NITRITE - DIPSTICK Positive (Negative)
[2024-02-07 17:32] LABS: BASO% 0.2 % (0-3); EOS% 7.4 % (0-8); HEMATOCRIT 34.1 % (37.0-47.0); HEMOGLOBIN 11.4 g/dl (12.0-16.0); IMMATURE GRANULOCYTES 0.1 % (0.0-5.0); LYMPH% 21.5 % (15-41); MEAN CELL VOLUME 90.2 fL CALC (80.0-100.0); MEAN CORPUSCULAR HGB 30.2 pG CALC (26.0-32.0); MEAN CORPUSCULAR HGB CONC 33.4 g/dL CAL (32.0-36.0); MONO% 6.9 % (2-13); NEUT# 5.63 thou/uL (2.00-7.15); NEUT% 63.9 % (42-76); RED BLOOD COUNT 3.78 mill/uL (4.20-5.60); RED CELL DISTRI WIDTH 13.8 % (11.5-15.5)
[2024-02-07 17:32] LABS: URINE BACTERIA FEW hpf; URINE SQUAMOUS EPITHELIAL CELL FEW EPI/hpf (0-FEW); URINE YEAST FEW hpf
[2024-02-07 17:46] LABS: ALBUMIN 4.1 g/dL (3.2-5.0); BILIRUBIN, TOTAL 0.9 mg/dL (0.02-1.3); CREATININE 1.6 mg/dL (0.5-1.0); POTASSIUM 3.8 mmol/l (3.5-5.1); TOTAL PROTEIN 7.4 g/dL (6.3-8.2)
[2024-02-07] MEDS ORDERED: LIDOcaine HCl 1% (Local Anesth.) 20 ML VIAL IM STA (18:19)
[2024-02-07] MEDS ORDERED: cefTRIAXone SODIUM 1 GM/VIAL SDV IM ONE (18:20)
[2024-02-07] MEDS ORDERED: cefTRIAXone SODIUM 2 GM in SODIUM CHLORIDE 0.9% 100 ML IV ONE (18:25)
[2024-02-07] MEDS ORDERED: CEPHALEXIN500 M1 PO (18:25)
== END 2024-02-07 19:41 | disposition home or self-care (01) ==
LOC: ED 16:26
PROVIDERS: Family Medicine
DX: N39.0 Urinary tract infection, site not specified (principal); I11.0 Hypertensive heart disease with heart failure; I50.9 Heart failure, unspecified; E11.9 Type 2 diabetes mellitus without complications; E66.01 Morbid (severe) obesity due to excess calories; Z79.4 Long term (current) use of insulin

== ENCOUNTER 2024-02-28 09:56 | Observation (INO) | payer OTHER ==
[2024-02-28] VITALS (13 sets, daily range): BP systolic 138–196; BP diastolic 62–90
[~2024-02-28] VITALS: Ht 167.6 cm; Wt 113.0 kg
--- NOTE | 2024-02-28 09:58 | NUR ---
PT BROUGHT BACK TO ER ROOM 1 VIA EMS, NO DISTRESS NOTED, PROVIDER AT BEDSIDE
--- NOTE | 2024-02-28 10:30 | NUR ---
PATIENT SITTING UP IN BED, RESPIRATIONS EVEN AND UNLABORED BUT PATIENT REPORTS SHORTNESS OF BREATH. STATES PRESSURE IN CHEST MAKES IT DIFFICULT TO BREATH. RATES PAIN 8 OUT OF 10. PROVIDED WITH PILLOW AND BLANKET. SPEECH CLEAR, A+O X 3. MD MADE AWARE OF PAIN/PRESSURE AND MD ORDERS MEDICATION. WILL MEDICATE PER ORDER. CALL LIGHT IN REACH, WILL CONTINUE TO MONITOR.
[2024-02-28] MEDS ORDERED: LANTUS100 UNIT SC (10:40)
[2024-02-28] MEDS ORDERED: LIRAGLUTIDE SC (10:41)
[2024-02-28] MEDS ORDERED: CLONAZEP ODT0.5 MG PO (10:43)
[2024-02-28] MEDS ORDERED: FLECAINIDE100 MG PO (10:45)
[2024-02-28 10:46] LABS: BASO% 0.2 % (0-3); EOS% 6.2 % (0-8); HEMATOCRIT 33.7 % (37.0-47.0); HEMOGLOBIN 11.1 g/dl (12.0-16.0); IMMATURE GRANULOCYTES 0.4 % (0.0-5.0); LYMPH% 22.3 % (15-41); MEAN CELL VOLUME 92.1 fL CALC (80.0-100.0); MEAN CORPUSCULAR HGB 30.3 pG CALC (26.0-32.0); MEAN CORPUSCULAR HGB CONC 32.9 g/dL CAL (32.0-36.0); MONO% 6.3 % (2-13); NEUT# 5.4 thou/uL (2.00-7.15); NEUT% 64.6 % (42-76); RED BLOOD COUNT 3.66 mill/uL (4.20-5.60); RED CELL DISTRI WIDTH 14.3 % (11.5-15.5)
[2024-02-28 10:58] LABS: ALBUMIN 4.3 g/dL (3.2-5.0); BILIRUBIN, TOTAL 1.2 mg/dL (0.02-1.3); CREATININE 1.6 mg/dL (0.5-1.0); POTASSIUM 3.9 mmol/l (3.5-5.1); TOTAL PROTEIN 7.6 g/dL (6.3-8.2)
[2024-02-28] MEDS ORDERED: NITROGLYCERIN 0.4 MG/TAB SL ONE ×2 (11:00→11:40)
--- NOTE | 2024-02-28 12:06 | NUR ---
PATIENT UP TO BATHROOM VIA WHEELCHAIR. TRANSFERS INDEPENDENTLY TO CHAIR AND TOILET AND BACK TO BED. SOME RELIEF FROM NITROGLYCERIN RATES PAIN 6 OUT OF 10. RELATES SHE CAN BREATHE A LITTLE EASIER. DENIES ANY NEEDS AT THIS TIME. WILL CONTINUE TO MONITOR. CALL LIGHT IN REACH.
[2024-02-28 12:10] LABS: URINE BILIRUBIN - DIPSTICK Negative (NEGATIVE); URINE BLOOD DIPSTICK Trace-lysed (NEGATIVE); URINE COLOR Yellow; URINE GLUCOSE - DIPSTICK Negative (NEGATIVE); URINE KETONE Negative (NEGATIVE); URINE LEUK ESTERASE Trace (NEGATIVE); URINE NITRITE - DIPSTICK Negative (Negative); URINE PH 5.5 (4.5-8.0); URINE PROTEIN - DIPSTICK 30 mg/dL (NEG-TRACE); URINE UROBILINOGEN - DIPSTICK 0.2 E.U./dL (0.2)
[2024-02-28 12:17] LABS: URINE MUCUS FEW hpf (NONE-FEW); URINE RBC 0-2 RBC/hpf (0-5)
[2024-02-28] MEDS ORDERED: ACETAMINOPHEN 325 MG/TAB PO PRN (13:10)
[2024-02-28] MEDS ORDERED: MAGNESIUM HYDROXIDE 30 ML UDC PO PRN (13:10)
[2024-02-28] MEDS ORDERED: Heparin SODIUM (Porcine) 5,000 UNITS/ML SDV SC SCH (14:00)
--- NOTE | 2024-02-28 14:52 | NUR ---
PATIENT CALM IN ROOM, REPORT CALLED TO SHIVAM BANUELOS. PATIENT DENIES ANY NEEDS. RESPIRATIONS EVEN AND UNLABORED, ON TELE. RN TO TRANSPORT PATIENT TO FLOOR.
--- NOTE | 2024-02-28 15:02 | NUR ---
PT ARRIVED VIA STRETCHER WITH TRAVEL PT. PT ABLE TO AMBULATE TO STRETCHER VIA STAND BY ASSIST. ADMISSON ASSESSMENT COMPLETED. TELE #[address] CONTINOUS MONITORING PER ED. IV INTACT/FLUSHED. ORIENTATED PT TO ROOM AND CALL ARORA SYSTEM. FALL/SAFTEY PRECAUTION IN PLACE CALL LIGHT WITHIN REACH
[2024-02-28] MEDS ORDERED: ZOLOFT25 MG PO (15:31)
[2024-02-28] MEDS ORDERED: DEXTROSE 250 ML IV PRN (15:35)
[2024-02-28] MEDS ORDERED: hydrALAZINE HCL 20 MG/ML VIAL(1 ML) IV PRN (15:40)
[2024-02-28] MEDS ORDERED: clonazePAM 0.5 MG/TAB PO PRN (15:55)
[2024-02-28] MEDS ORDERED: PANTOPRAZOLE SODIUM Sesquihydr 40 MG/TAB PO SCH (16:00)
[2024-02-28] MEDS ORDERED: LISINOPRIL 20 MG/TAB PO SCH (16:30)
[2024-02-28] MEDS ORDERED: INSULIN LISPRO 100 UNITS/ML ML SC SCH (17:00)
--- NOTE | 2024-02-28 17:45 | NUR ---
PT RESTING IN BED. NO DISTRESS NOTED. RESPIRATIONS ARE EVEN AND [id number]. TELE MONITOR IN PLACE CONTINOUS MONITORING PER ED. FALL/SAFTEY PRECAUTION IN PLACE.CALL LIGHT WITHIN REACH
--- NOTE | 2024-02-28 20:30 | NUR ---
PT RESTING NO DISTRESS NOTED ON ASSESSMENT. PT ASKED FOR SNACKS AND GIVEN TO HER BUT INFORMED OF HIGH BG. VS WNL ON RA LUNGS CLEAR. SKIN INTACT NO EDEMA NOTED. NO PAIN REPORTED AT THIS TIME. IV FLUSHED WORKING PROPERLY SL. CALL LIGHT WITHIN REACH. PLAN OF CARE ONGOING.
[2024-02-28] MEDS ORDERED: FLECAINIDE ACETATE 50 MG TAB PO SCH (21:00)
--- NOTE | 2024-02-28 23:20 | NUR ---
REPORT RECEIVED FROM JES BANUELOS. PT RESTING IN BED, APPEARS COMFORTABLE. THIS OCCUPATIONAL ANALYST STANDY BY ASSIST PT TO BATHROOM, AMBULATES WITH A STEADY GAIT. PT STATES THAT UPON EXERTION WHEN AMBULATING SMALL AMOUNT OF NON-CARDIAC CHEST DISCOMFORT. DISCOMFORT RESOLVED WITHIN 1-2 MIN AFTER RESTING. NO FURTHER COMPLAINTS OFFERED AT THIS TIME. PT DENIES ANY SOB. VSS. NO S&S OF DISTRESS NOTED. TELE MONITOR REMAINS IN PLACE. PT REFUSING FREDDY HOSE AT THIS TIME. TRACE EDEMA NOTED TO BILATERAL FEET, AND (R) HAND. PT IS A&O X3, AND ABLE TO MAKE NEEDS KNOWN. BOWEL SOUNDS ACTIVE X4 QUADRANTS, PT STATES THAT HER LAST BM WAS ON 02-28-24. LUNG SOUNDS CLEAR UPON AUSCULTATION. PT EDUCATED ON POC AND MEDICATION SCHEDULE. CALL LIGHT IN REACH, AND SAFETY PRECAUTIONS
[2024-02-29 00:17] VITALS: BP 146/63
--- NOTE | 2024-02-29 00:30 | NUR ---
THIS CULTURE ROOM WORKER AND OTHER NURSE PERFORMED SAFETY CHECK. PT RESTING IN BED, APPEARS COMFORTABLE. PT EDUCATED ON IMPORTANCE OF USING CALL LIGHT WHEN NEEDING ASSISTANCE TO AMBULATE TO BATHROOM DUE TO SYMPTOMS FOR HOSPITLIZATION, PT STATES " I DONT THINK THAT IS NECESSARY". PT ALSO EDUCATED ON STRICT I&O, HAT PLACED IN TOILET, PT IN AGREEANCE. PT SLIGHTLY AGITATED AT THIS TIME. PT SHOWING DISINTEREST IN EDUCATION TOPICS. WILL CONTINUE TO MONITOR.
[2024-02-29 03:36] VITALS: BP 150/78
--- NOTE | 2024-02-29 04:25 | NUR ---
PATIENT VOICED SHE WAS ''AGGRAVATED'' WITH HER CURRENT NURSE DUE TO HIM EXPLAINING TO HER THE IMPORTANCE OF UTILIZING CALL ARORA WHEN NEEDING ASSISTANCE WITH AMBULATION FOR SAFETY PURPOSES. SHE WAS ALSO EXPLAINED BY HER NURSE THE REASONING BEHIND I AND O'S AND REPLIED, ''IM BEING TREATED LIKE A BABY''. THIS STEMMING MACHINE OPERATOR WAS PRESENT AT BEDSIDE DURING NURSE EDUCATING PATIENT. AT THE TIME SHE VERBALIZED UNDERSTANDING AND DENIED NEEDING ANYTHING. PNEUMATIC JACK OPERATOR WAS MADE AWARE BY PATIENTS NURSE.
[2024-02-29 04:52] VITALS: BP 150/78
[2024-02-29 06:00] LABS: BASO% 0.1 % (0-3); HEMATOCRIT 31.5 % (37.0-47.0); HEMOGLOBIN 10.2 g/dl (12.0-16.0); IMMATURE GRANULOCYTES 0.4 % (0.0-5.0); LYMPH% 12.4 % (15-41); MEAN CELL VOLUME 91.6 fL CALC (80.0-100.0); MEAN CORPUSCULAR HGB 29.7 pG CALC (26.0-32.0); MEAN CORPUSCULAR HGB CONC 32.4 g/dL CAL (32.0-36.0); MONO% 6.1 % (2-13); NEUT# 5.61 thou/uL (2.00-7.15); RED BLOOD COUNT 3.44 mill/uL (4.20-5.60)
[2024-02-29 06:21] LABS: ALBUMIN 3.7 g/dL (3.2-5.0); BILIRUBIN, TOTAL 1.1 mg/dL (0.02-1.3); CHOLESTEROL HDL RATIO 3.2 (<4.4 (CALC)); CREATININE 1.4 mg/dL (0.5-1.0); MAGNESIUM 1.8 mg/dL (1.6-2.3); TOTAL PROTEIN 6.6 g/dL (6.3-8.2)
[2024-02-29 06:27] LABS: POTASSIUM 4.7 mmol/l (3.5-5.1)
[2024-02-29 07:35] VITALS: BP 156/57
--- NOTE | 2024-02-29 07:35 | NUR ---
PT LAYING IN BED RESTING WITH EYES CLOSED, AROUSES EASILY TO VERBALI STIMULI, PT ALERT & ORIENTED X3, PUPILS PERRL, RESP. EVEN AND UNLABORED, CLEAR LUNG SOUNDS, NORMAL S1 S2 HEART SOUNDS, ABD DISTENDED AND SOFT WITH ACTIVE BOWEL SOUNDS, STRONG RADIAL PULSES, WEAK PEDAL PULSES, TRACE BILAT LE EDEMA, 20G LAC IV SL, SAFETY MEASURES REINFORCED, CALL ARORA WITHIN REACH
--- NOTE | 2024-02-29 08:45 | NUR ---
DR HARPER AND ISHAN AT BESIDE DISCUSSING PLAN OF CARE
[2024-02-29] MEDS ORDERED: INSULIN DETEMIR 100 UNITS/ML SC SCH (09:00)
[2024-02-29] MEDS ORDERED: SERTRALINE HCL 25 MG/TAB PO SCH (09:00)
[2024-02-29 10:17] VITALS: BP 147/77
[2024-02-29] MEDS ORDERED: ATORVASTATIN CA40 MG PO (10:21)
[2024-02-29] MEDS ORDERED: LISINOPRIL20 M1 PO (10:21)
[2024-02-29] MEDS ORDERED: ADLT ASA LOW81 MG PO (10:22)
[2024-02-29] MEDS ORDERED: PANTOPRAZOLE SO40 M1 PO (10:22)
[2024-02-29] MEDS ORDERED: ASPIRIN EC 81 MG/TAB PO SCH (11:00)
[2024-02-29 11:23] VITALS: BP 147/77
--- NOTE | 2024-02-29 12:10 | NUR ---
Discharge instructions given. Patient verbalizes understanding of same. Discharged in stable condition via Wheelchair to Home with family. All belongings sent with pt.
[2024-02-29] MEDS ORDERED: ATORVASTATIN CALCIUM 40 MG/TAB PO SCH (21:00)
== END 2024-02-29 12:13 | disposition home or self-care (01) ==
LOC: ED 09:56 → ED-I 12:50 → ED 13:09 → MS2 13:10
PROVIDERS: Family Medicine; Nurse Practitioner Family; ADMIT Internal Medicine; ATTEND Internal Medicine
DX: R07.89 Other chest pain (principal); I13.0 Hypertensive heart and chronic kidney disease with heart failure and stage 1 through stage 4 chronic kidney disease, or unspecified chronic kidney disease; I50.9 Heart failure, unspecified; N18.31 Chronic kidney disease, stage 3a; E11.9 Type 2 diabetes mellitus without complications; F41.9 Anxiety disorder, unspecified; E78.5 Hyperlipidemia, unspecified; K21.9 Gastro-esophageal reflux disease without esophagitis; E66.01 Morbid (severe) obesity due to excess calories; M32.9 Systemic lupus erythematosus, unspecified; Z87.891 Personal history of nicotine dependence; Z79.4 Long term (current) use of insulin; Z20.822 Contact with and (suspected) exposure to COVID-19
CPT/HCPCS: G0378

== ENCOUNTER 2024-07-08 09:35 | Emergency (ER) | payer OTHER ==
[~2024-07-08] VITALS: Ht 167.6 cm; Wt 111.0 kg
[~2024-07-08 09:35] MED LIST changes: +ADLT ASA LOW81 MG PO; +ATORVASTATIN CA40 MG PO; +CLONAZEP ODT0.5 MG PO; +LANTUS100 UNIT SC; +LIRAGLUTIDE SC; +LISINOPRIL20 M1 PO; +PANTOPRAZOLE SO40 M1 PO; +ZOLOFT25 MG PO
[2024-07-08 10:00] VITALS: BP 132/84
[2024-07-08 10:16] VITALS: BP 135/79
[2024-07-08] MEDS ORDERED: FLONASE AL50 MCG/AC1 NS (11:02)
[2024-07-08] MEDS ORDERED: AMOXICILLIN500 MG PO (11:02)
[2024-07-08] MEDS ORDERED: NAPROXEN500 MG PO (11:02)
[2024-07-08 11:09] VITALS: BP 135/79
== END 2024-07-08 11:10 | disposition home or self-care (01) ==
LOC: ED 09:35
DX: J32.0 Chronic maxillary sinusitis (principal); I13.0 Hypertensive heart and chronic kidney disease with heart failure and stage 1 through stage 4 chronic kidney disease, or unspecified chronic kidney disease; E11.22 Type 2 diabetes mellitus with diabetic chronic kidney disease; N18.9 Chronic kidney disease, unspecified; I50.9 Heart failure, unspecified; E66.01 Morbid (severe) obesity due to excess calories; Z79.4 Long term (current) use of insulin